=== PATIENT | female | born 1990 | race African-American/Black ===

== ENCOUNTER 2017-04-10 15:23 | Emergency (ER) | payer MEDICAID | END 2017-04-10 19:04 | disposition home or self-care (01) | LOC: D.ER 15:23 | DX: S80.02XA Contusion of left knee, initial encounter (principal); W10.9XXA Fall (on) (from) unspecified stairs and steps, initial encounter; S93.402A Sprain of unspecified ligament of left ankle, initial encounter; I10 Essential (primary) hypertension; F17.200 Nicotine dependence, unspecified, uncomplicated ==

== ENCOUNTER 2017-04-14 12:55 | Emergency (ER) | payer MEDICAID | END 2017-04-14 13:39 | disposition home or self-care (01) | LOC: D.ER 12:55 | DX: S93.602A Unspecified sprain of left foot, initial encounter (principal); W01.0XXA Fall on same level from slipping, tripping and stumbling without subsequent striking against object, initial encounter; S80.02XA Contusion of left knee, initial encounter; I10 Essential (primary) hypertension; F17.200 Nicotine dependence, unspecified, uncomplicated ==

== ENCOUNTER 2017-04-29 12:34 | Emergency (ER) | payer MEDICAID | END 2017-04-29 13:48 | disposition home or self-care (01) | LOC: D.ER 12:34 | DX: S39.012A Strain of muscle, fascia and tendon of lower back, initial encounter (principal); X58.XXXA Exposure to other specified factors, initial encounter; Y93.89 Activity, other specified; Y92.89 Other specified places as the place of occurrence of the external cause; I10 Essential (primary) hypertension ==

== ENCOUNTER 2017-06-12 15:43 | Emergency (ER) | payer MEDICAID | END 2017-06-12 19:04 | disposition home or self-care (01) | LOC: D.ER 15:43 | DX: S40.012A Contusion of left shoulder, initial encounter (principal); W20.8XXA Other cause of strike by thrown, projected or falling object, initial encounter; Y93.89 Activity, other specified; Y92.830 Public park as the place of occurrence of the external cause; F17.200 Nicotine dependence, unspecified, uncomplicated; I10 Essential (primary) hypertension ==

== ENCOUNTER 2017-07-03 05:14 | Emergency (ER) | payer MEDICAID | END 2017-07-03 05:52 | disposition home or self-care (01) | LOC: D.ER 05:14 | DX: M25.512 Pain in left shoulder (principal); W19.XXXA Unspecified fall, initial encounter; Y93.89 Activity, other specified; Y92.029 Unspecified place in mobile home as the place of occurrence of the external cause; I10 Essential (primary) hypertension; F17.200 Nicotine dependence, unspecified, uncomplicated ==

== ENCOUNTER 2017-08-26 15:51 | Emergency (ER) | payer MEDICAID | END 2017-08-26 17:48 | disposition home or self-care (01) | LOC: D.ER 15:51 | DX: S43.402A Unspecified sprain of left shoulder joint, initial encounter (principal); X58.XXXA Exposure to other specified factors, initial encounter; Y93.89 Activity, other specified; Y92.019 Unspecified place in single-family (private) house as the place of occurrence of the external cause; I10 Essential (primary) hypertension; F17.200 Nicotine dependence, unspecified, uncomplicated ==

== ENCOUNTER 2018-10-16 18:50 | Emergency (ER) | payer MEDICAID ==
[~2018-10-16] VITALS: Ht 160 cm; Wt 136.4 kg
[2018-10-16 19:07] VITALS: Ht 160 cm; Wt 136.4 kg
[2018-10-16] MEDS ORDERED: ZYLOPRIM100 MG (19:11)
[2018-10-16] MEDS ORDERED: MOBIC7.5 MG (19:11)
[2018-10-16] MEDS ORDERED: LISINOPRIL2.5 MG (19:11)
[2018-10-16] MEDS ORDERED: LEXAPRO5 MG (19:11)
[2018-10-16] MEDS ORDERED: AMBIEN5 MG (19:11)
[2018-10-16] MEDS ORDERED: VESICARE5 MG (19:12)
[2018-10-16 19:35] LABS: BASOPHILS 0.4 % (0-2); EOSINOPHILS 6.4 % (0-7); HEMATOCRIT 39.9 % (36.0-48.0); HEMOGLOBIN 13.3 g/dL (12-16); LYMPHOCYTES 58.2 % (15-50); MCH 31.5 pg (26.0-34.0); MCHC 33.3 g/dL (31.0-37.0); MCV 94.5 fL (80.0-100.0); MEAN PLATELET VOLUME 10.3 fL (7.4-10.4); MONOCYTES 9.2 % (2-11); NEUTROPHILS 25.8 % (40-80); PLATELET COUNT 192 10x3/uL (130-400); RBC 4.22 10x6/uL (4.00-5.40); RDW 13.1 % (11.5-14.5); WBC 4.7 10x3/uL (4.8-10.8)
[2018-10-16 19:47] LABS: INR 0.98 (0.85-1.17); PROTIME 12.5 SECONDS (11.6-15.0)
[2018-10-16 19:54] LABS: ALKALINE PHOSPHATASE 111 U/L (46-116); ALT (SGPT) 30 U/L (10-68); CALC OSMOLALITY 278 mosm/kg (275-300); CALCIUM 7.9 mg/dL (8.5-10.1); CARBON DIOXIDE 28.1 mmol/L (21.0-32.0); CHLORIDE - SERUM 105 mmol/L (98-107); CREATININE - SERUM 0.8 mg/dL (0.6-1.3); GLUCOSE 79 mg/dL (74-106); POTASSIUM - SERUM 3.7 mmol/L (3.5-5.1); PROTEIN - SERUM 6.8 g/dL (6.4-8.2); SODIUM 141 mmol/L (136-145); UREA NITROGEN 9 mg/dL (7-18); eGFR NON AFRICAN AMERICAN 90 mL/min (90-120)
[2018-10-16 20:04] LABS: CKMB 0.4 U/L (0.0-3.6); CREATINE KINASE 223 UL (21-215); MAGNESIUM - SERUM 2.1 mg/dL (1.8-2.4)
[2018-10-16 20:08] LABS: TROPONIN-I < 0.017 ng/mL (0.000-0.060)
[2018-10-16] MEDS ORDERED: CLARITIN 10 MG10 MG PO (22:44)
[2018-10-16] MEDS ORDERED: ZPAK PO (22:44)
[2018-10-16] MEDS ORDERED: SCOT-TUSSI10 MG/5 ML PO (22:44)
[2018-10-16 23:08] VITALS: BP 131/92
== END 2018-10-16 23:26 | disposition home or self-care (01) ==
LOC: D.ER 18:50
PROVIDERS: Family Medicine
DX: J40 Bronchitis, not specified as acute or chronic (principal); R05 Cough; R09.89 Other specified symptoms and signs involving the circulatory and respiratory systems; I10 Essential (primary) hypertension; F17.200 Nicotine dependence, unspecified, uncomplicated

== ENCOUNTER 2019-03-06 11:46 | Emergency (ER) | payer MEDICAID ==
[~2019-03-06] VITALS: Ht 160 cm; Wt 142.9 kg
[~2019-03-06 11:46] MED LIST: AMBIEN5 MG; CLARITIN 10 MG10 MG PO; LEXAPRO5 MG; LISINOPRIL2.5 MG; MOBIC7.5 MG; SCOT-TUSSI10 MG/5 ML PO; VESICARE5 MG; ZPAK PO; ZYLOPRIM100 MG
[2019-03-06 11:50] VITALS: BP 123/84; Ht 160 cm; Wt 142.9 kg
[2019-03-06] MEDS ORDERED: FLUTICASONE PRO16 GM NASAL (12:49)
[2019-03-06] MEDS ORDERED: ZYRTEC10 MG PO (12:49)
[2019-03-06] MEDS ORDERED: AUGMENTIN 875-11 TAB PO (12:49)
== END 2019-03-06 14:16 | disposition home or self-care (01) ==
LOC: D.ER 11:46
DX: R51 Headache (principal); R09.89 Other specified symptoms and signs involving the circulatory and respiratory systems

== ENCOUNTER 2019-04-14 15:57 | Emergency (ER) | payer MEDICAID ==
[~2019-04-14] VITALS: Ht 160 cm; Wt 143.2 kg
[~2019-04-14 15:57] MED LIST changes: +AUGMENTIN 875-11 TAB PO; +FLUTICASONE PRO16 GM NASAL; +ZYRTEC10 MG PO
[2019-04-14 16:03] VITALS: Ht 160 cm; Wt 143.2 kg
[2019-04-14] MEDS ORDERED: HYDROCODON-ACE1 EAC7 PO (16:48)
[2019-04-14 17:18] VITALS: BP 124/72
== END 2019-04-14 17:20 | disposition home or self-care (01) ==
LOC: D.ER 15:57
DX: K08.89 Other specified disorders of teeth and supporting structures (principal); Z98.818 Other dental procedure status

== ENCOUNTER 2019-06-14 01:15 | Emergency (ER) | payer MEDICAID ==
[~2019-06-14] VITALS: Ht 160 cm; Wt 140.9 kg
[~2019-06-14 01:15] MED LIST changes: +HYDROCODON-ACE1 EAC7 PO
[2019-06-14 01:24] VITALS: Ht 160 cm; Wt 140.9 kg
[2019-06-14] MEDS ORDERED: VESICARE5 MG PO (01:25)
[2019-06-14] MEDS ORDERED: HYDROCHLOROTHIA25 MG PO (01:26)
[2019-06-14] MEDS ORDERED: TYLENOL #4 W/CO1 TAB PO (03:35)
== END 2019-06-14 03:43 | disposition home or self-care (01) ==
LOC: D.ER 01:15
DX: M54.5 Low back pain (principal); S39.012A Strain of muscle, fascia and tendon of lower back, initial encounter; W19.XXXA Unspecified fall, initial encounter

== ENCOUNTER 2019-10-01 20:09 | Emergency (ER) | payer MEDICAID ==
[~2019-10-01] VITALS: Ht 160 cm; Wt 143.2 kg
[~2019-10-01 20:09] MED LIST changes: +HYDROCHLOROTHIA25 MG PO; +TYLENOL #4 W/CO1 TAB PO; +VESICARE5 MG PO
[2019-10-01 20:11] VITALS: Ht 160 cm; Wt 143.2 kg
[2019-10-01] MEDS ORDERED: TYLENOL W/CODEI1 TAB PO (21:08)
[2019-10-01] MEDS ORDERED: PENICILLIN V P500 MG PO (21:08)
[2019-10-01 21:38] VITALS: BP 141/82
== END 2019-10-01 21:39 | disposition home or self-care (01) ==
LOC: D.ER 20:09
DX: K04.7 Periapical abscess without sinus (principal); K02.9 Dental caries, unspecified; I10 Essential (primary) hypertension; Z72.0 Tobacco use

== ENCOUNTER 2021-02-14 15:43 | Emergency (ER) | payer MEDICAID ==
[~2021-02-14] VITALS: Ht 160 cm; Wt 138.6 kg
[~2021-02-14 15:43] MED LIST changes: +PENICILLIN V P500 MG PO; +TYLENOL W/CODEI1 TAB PO
[2021-02-14 15:56] VITALS: BP 146/92; Ht 160 cm; Wt 138.6 kg
[2021-02-14 16:34] LABS: EOSINOPHILS 2.8 % (0-7); HEMATOCRIT 41.1 % (36.0-48.0); HEMOGLOBIN 13.7 g/dL (12-16); LYMPHOCYTES 48.8 % (15-50); MCH 31.7 pg (26.0-34.0); MCHC 33.4 g/dL (31.0-37.0); MCV 94.8 fL (80.0-100.0); MEAN PLATELET VOLUME 8.3 fL (7.4-10.4); MONOCYTES 12.8 % (2-11); NEUTROPHILS 34.6 % (40-80); PLATELET COUNT 189 10x3/uL (130-400); RBC 4.34 10x6/uL (4.00-5.40); RDW 14.9 % (11.5-14.5); WBC 4.7 10x3/uL (4.8-10.8)
[2021-02-14 16:43] LABS: CALC OSMOLALITY 277 mosm/kg (275-300); CALCIUM 8.3 mg/dL (8.5-10.1); CARBON DIOXIDE 28.6 mmol/L (21.0-32.0); CHLORIDE - SERUM 105 mmol/L (98-107); CREATININE - SERUM 0.7 mg/dL (0.6-1.3); GLUCOSE 99 mg/dL (74-106); POTASSIUM - SERUM 3.7 mmol/L (3.5-5.1); SODIUM 139 mmol/L (136-145); UREA NITROGEN 12 mg/dL (7-18); eGFR NON AFRICAN AMERICAN > 90 mL/min (90-120)
[2021-02-14 16:50] LABS: ALBUMIN 3.3 g/dL (3.4-5.0); ALKALINE PHOSPHATASE 102 U/L (30-120); ALT (SGPT) 29 U/L (10-68); BILIRUBIN - TOTAL 0.42 mg/dL (0.2-1.3); PROTEIN - SERUM 6.6 g/dL (6.4-8.2)
[2021-02-14] MEDS ORDERED: ALBUTEROL SULF8.5 GM INH (16:50)
[2021-02-14] MEDS ORDERED: MEDROL DOSE PACK4 MG PO (16:50)
== END 2021-02-14 17:34 | disposition home or self-care (01) ==
LOC: D.ER 15:43
PROVIDERS: Family Medicine
DX: J20.9 Acute bronchitis, unspecified (principal); J06.9 Acute upper respiratory infection, unspecified; R05 Cough; H92.03 Otalgia, bilateral; I10 Essential (primary) hypertension; Z72.0 Tobacco use; R07.89 Other chest pain

== ENCOUNTER 2021-03-15 14:39 | Emergency (ER) | payer MEDICAID ==
[~2021-03-15] VITALS: Ht 160 cm; Wt 140.9 kg
[~2021-03-15 14:39] MED LIST changes: +ALBUTEROL SULF8.5 GM INH; +MEDROL DOSE PACK4 MG PO
[2021-03-15 14:46] VITALS: Ht 160 cm; Wt 140.9 kg
[2021-03-15 15:29] LABS: BASOPHILS 0.7 % (0-2); EOSINOPHILS 3.2 % (0-7); HEMATOCRIT 42.6 % (36.0-48.0); LYMPHOCYTES 39.6 % (15-50); MCH 32.8 pg (26.0-34.0); MCHC 32.9 g/dL (31.0-37.0); MCV 99.8 fL (80.0-100.0); MEAN PLATELET VOLUME 8.6 fL (7.4-10.4); MONOCYTES 9.6 % (2-11); NEUTROPHILS 46.9 % (40-80); PLATELET COUNT 217 10x3/uL (130-400); RBC 4.27 10x6/uL (4.00-5.40); WBC 5.1 10x3/uL (4.8-10.8)
[2021-03-15 15:41] LABS: CALC OSMOLALITY 276 mosm/kg (275-300); CARBON DIOXIDE 29.3 mmol/L (21.0-32.0); CHLORIDE - SERUM 103 mmol/L (98-107); CREATININE - SERUM 0.9 mg/dL (0.6-1.3); GLUCOSE 110 mg/dL (74-106); POTASSIUM - SERUM 3.9 mmol/L (3.5-5.1); SODIUM 139 mmol/L (136-145); UREA NITROGEN 8 mg/dL (7-18); eGFR NON AFRICAN AMERICAN 77 mL/min (90-120)
[2021-03-15 15:47] LABS: ALBUMIN 3.5 g/dL (3.4-5.0); ALKALINE PHOSPHATASE 92 U/L (30-120); ALT (SGPT) 44 U/L (10-68); BILIRUBIN - TOTAL 0.99 mg/dL (0.2-1.3); PROTEIN - SERUM 7.2 g/dL (6.4-8.2)
[2021-03-15 16:00] LABS: BILIRUBIN NEGATIVE (NEGATIVE); KETONE NEGATIVE mg/dL (< 1+); NITRITE NEGATIVE (NEGATIVE); PH 7.5 (5.0-8.0); UROBILINOGEN NORMAL mg/dL (< 2)
[2021-03-15 16:01] LABS: SQUAMOUS EPITHELIAL 5 HPF (0-4); WHITE CELLS - URINE 1 HPF (0-4)
[2021-03-15 17:31] LABS: HCG URINE NEGATIVE (NEGATIVE)
[2021-03-15] MEDS ORDERED: FLAGYL500 MG PO (20:20)
[2021-03-15 20:51] VITALS: BP 138/87
== END 2021-03-15 22:23 | disposition home or self-care (01) ==
LOC: D.ER 14:39
PROVIDERS: Family Medicine
DX: N76.0 Acute vaginitis (principal); R30.0 Dysuria; Z20.2 Contact with and (suspected) exposure to infections with a predominantly sexual mode of transmission; I10 Essential (primary) hypertension